=== PATIENT | male | born 1950 | race Caucasian/White ===

== ENCOUNTER → 2018-07-08 | Outpatient (CLI) | payer MEDICARE, OTHER ==
[~2018-07-08] MED LIST: ALEVE220 MG PO; CALAN40 MG PO; FISH OIL CONCEN1 SGL PO; FLONASEALLERGY NS; HCTZ PO; LIPITOR; LIPITOR20 MG PO; LUTEIN6 MG PO; MULTIPLE VITAMI1 CAP PO; OMEGA 31000 MG PO; VERAPAMIL ER240 MG PO; VERELAN PM100 MG PO; VOLTAREN GEL 1%1 TU TP
== END ==
LOC: COL.RAD 08:20
DX: N28.1 Cyst of kidney, acquired (principal); K76.89 Other specified diseases of liver
CPT/HCPCS: Q9967